=== PATIENT | male | born 1995 | race African-American/Black ===

== ENCOUNTER 2016-08-06 15:38 | Emergency (ER) | payer OTHER ==
[2016-08-06 16:53] VITALS: BP 147/84
--- NOTE | 2016-08-06 18:26 | RAD ---
INDICATION: Left ankle injury. TECHNIQUE: 3 views of the left ankle were obtained. FINDINGS: Soft tissue swelling is noted along the anterolateral aspect of the ankle. No fracture is seen. Joint spaces appear maintained. IMPRESSION: SOFT TISSUE SWELLING, NO FRACTURE IS SEEN.
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
== END 2016-08-06 19:27 | disposition home or self-care (01) ==
LOC: ED 15:38
DX: S93.402A Sprain of unspecified ligament of left ankle, initial encounter (principal); M25.572 Pain in left ankle and joints of left foot; Z87.891 Personal history of nicotine dependence; X50.9XXA Other and unspecified overexertion or strenuous movements or postures, initial encounter; Y93.9 Activity, unspecified; Y92.9 Unspecified place or not applicable
CPT/HCPCS: 99282

== ENCOUNTER 2016-08-21 13:31 | Emergency (ER) | payer OTHER ==
[2016-08-21 13:36] VITALS: BP 167/91
[2016-08-21] MEDS ORDERED: Ketorolac INJ* 60 MG/2 ML VIAL IM ONE (14:55)
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
== END 2016-08-21 15:28 | disposition home or self-care (01) ==
LOC: ED 13:31
DX: M25.572 Pain in left ankle and joints of left foot (principal); Z87.891 Personal history of nicotine dependence
CPT/HCPCS: 96372; 99281

== ENCOUNTER 2017-11-13 10:27 | Emergency (ER) | payer MEDICAID, OTHER ==
[2017-11-13 10:43] VITALS: BP 154/86
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
--- NOTE | 2017-11-13 11:32 | RAD ---
Indication: Left knee pain. 4 views of left knee demonstrate a bipartite patella. Joint spaces well-preserved. No joint effusion is noted. IMPRESSION: Unremarkable left knee.
== END 2017-11-13 11:51 | disposition home or self-care (01) ==
LOC: UCEAST 10:27
DX: M25.562 Pain in left knee (principal); M76.62 Achilles tendinitis, left leg; I10 Essential (primary) hypertension; Z87.891 Personal history of nicotine dependence
CPT/HCPCS: 99201; G0463

== ENCOUNTER 2018-04-12 11:33 | Emergency (ER) | payer MEDICAID, OTHER ==
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
[2018-04-12 11:54] VITALS: BP 135/79
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
== END 2018-04-12 12:42 | disposition home or self-care (01) ==
LOC: UCEAST 11:33
DX: Z48.02 Encounter for removal of sutures (principal); Z87.891 Personal history of nicotine dependence
CPT/HCPCS: 99212; G0463

== ENCOUNTER 2018-09-11 08:46 | Emergency (ER) | payer OTHER ==
[2018-09-11 09:01] VITALS: BP 135/86
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
== END 2018-09-11 10:10 | disposition home or self-care (01) ==
LOC: UCEAST 08:46
DX: R07.89 Other chest pain (principal); Z87.828 Personal history of other (healed) physical injury and trauma; Z87.891 Personal history of nicotine dependence
CPT/HCPCS: 71046; 99211; G0463

== ENCOUNTER 2018-10-22 10:23 | Emergency (ER) | payer SELFPAY ==
[2018-10-22 10:32] VITALS: BP 137/91
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
== END 2018-10-22 11:18 | disposition home or self-care (01) ==
LOC: UCEAST 10:23
DX: S62.336A Displaced fracture of neck of fifth metacarpal bone, right hand, initial encounter for closed fracture (principal); V48.4XXA Person boarding or alighting a car injured in noncollision transport accident, initial encounter; Y92.9 Unspecified place or not applicable; I10 Essential (primary) hypertension; J45.909 Unspecified asthma, uncomplicated
CPT/HCPCS: 99211; G0463

== ENCOUNTER 2019-02-18 23:37 | Emergency (ER) | payer OTHER ==
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
[2019-02-19 01:07] VITALS: BP 152/84
== END 2019-02-19 01:05 | disposition home or self-care (01) ==
LOC: ED 23:37
DX: R07.89 Other chest pain (principal); F41.9 Anxiety disorder, unspecified; I10 Essential (primary) hypertension; Z72.0 Tobacco use
CPT/HCPCS: 71046; 93005; 99282

== ENCOUNTER 2019-05-27 11:56 | Emergency (ER) | payer OTHER ==
[2019-05-27] MEDS ORDERED: Famotidine IV* 10 MG/ML 2 ML (20 mg) IV SLOW PU ONE (13:58)
[2019-05-27] MEDS ORDERED: Al Hydrox/Mg Hydrox/Simet LIQ* 30 ML UDC PO ONE (13:58)
[2019-05-27] MEDS ORDERED: Ketorolac INJ* 30 MG/ML 1 ML VIAL IV PUSH ONE (14:00)
[2019-05-27 14:24] LABS: ABS Basophils 0.1 10^3/ul (0-0.2); ABS Eosinophils 0.4 10^3/ul (0-0.6); ABS Lymphocytes 2.2 10^3/ul (1.0-4.8); ABS Monocytes 0.9 10^3/ul (0-0.8); ABS Neutrophils 8.9 10^3/ul (1.5-7.7); Eosinophil % 2.9 %; Hematocrit 50 % (42-52); Hemoglobin 17.2 g/dL (14.0-18.0); Lymphocyte % 17.7 %; Mean Corpuscular HGB Conc 35 g/dL (31-36); Mean Corpuscular Hemoglobin 29 pg (27-31); Mean Corpuscular Volume 83 fL (80-94); Mean Platelet Volume 8.5 fL (7.4-10.4); Platelet Count 295 10^3/uL (150-450); Red Blood Count 5.95 10^6 /uL (4.18-5.48); Red Cell Distribution Width 15 % (10-15); White Blood Count 12.4 10^3/uL (3.5-10.8)
[2019-05-27] MEDS ORDERED: NS 0.9% 1000 ML** 1,000 ML IV ONE (14:25)
[2019-05-27 14:42] LABS: Albumin/Globulin Ratio 1.6 (1-3); BUN/Creatinine Ratio 15.9 (8-20); C Reactive Protein 10.18 mg/L (<8.01); Calcium 10.4 mg/dL (8.6-10.3); EGFR African American 71.8 (>60); EGFR Non-African American 59.3 (>60); Globulin 3.2 g/dL (2-4); Total Protein 8.2 g/dL (6.4-8.9)
[2019-05-27 16:16] VITALS: BP 125/69
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
== END 2019-05-27 16:15 | disposition home or self-care (01) ==
LOC: ED 11:56
DX: R10.13 Epigastric pain (principal); Z79.899 Other long term (current) drug therapy; Z87.891 Personal history of nicotine dependence
CPT/HCPCS: 36415; 80053; 85025; 86140; 96361; 96374; 96375; 99282; A9270-GY; J1885